=== PATIENT | male | born 2000 | race Caucasian/White ===

== ENCOUNTER 2022-12-12 19:06 | Emergency (ER) | payer OTHER ==
[2022-12-12 19:14] VITALS: BP 125/66; PULSE 67; RESP 16; TEMP 98.4; BMI 24.5
[2022-12-12] MEDS ORDERED: DIPHTH,PERTUSS(ACELL),TET 0.5 ML DISP.SYRIN IM ONE ×2 (19:45→19:48)
== END 2022-12-12 20:30 | disposition home or self-care (01) ==
LOC: JERFT 19:06
PROC: 3E0234Z Introduction of Serum, Toxoid and Vaccine into Muscle, Percutaneous Approach (ICD-10-PCS; principal; 2022-12-12)
DX: S61.411A Laceration without foreign body of right hand, initial encounter (principal); X58.XXXA Exposure to other specified factors, initial encounter
CPT/HCPCS: 73130-TC-RT-FY; 90471; 90715; 99283-25